=== PATIENT | female | born 1945 | race Caucasian/White ===

== ENCOUNTER 2016-03-14 21:32 | Inpatient (IN) ==
[2016-03-14 22:28] LABS: Basophils % 0.6 %; Eosinophils % 0.8 %; Hematocrit 47.1 % (35.3-44.9); Hemoglobin 15.2 g/dL (11.5-15.4); Immature Granulocytes % 0.3 % (0-4); Lymphocytes # 0.3 K/mcL (0.6-4.6); Lymphocytes % 7.3 %; Mean Corpuscular HGB Conc 32.3 g/dL (31.6-35.5); Mean Corpuscular Hemoglobin 29.2 pg (28.0-33.3); Mean Corpuscular Volume 90.4 fL (83.0-100.0); Mean Platelet Volume 10.4 fL (9.4-12.4); Monocytes # 0.3 K/mcL (0.0-1.3); Monocytes % 7.6 %; Platelet Count 210 K/mcL (140-400); Red Blood Count 5.21 M/mcL (3.82-4.97); Red Cell Distribution Width 14.5 % (11.5-14.5); Segmented Neutrophils % 83.4 %
[2016-03-14 22:32] LABS: Neutrophils # 2.9 K/mcL (1.6-8.9)
[2016-03-14 22:43] LABS: Calcium 9.9 mg/dL (8.6-10.8); Potassium 4.5 mEq/L (3.5-4.5)
[2016-03-14 22:50] LABS: Platelet Estimate Normal (Normal)
[2016-03-14] MEDS ORDERED: Naloxone 0.4 MG/ML INJ IVP PRN (23:48)
[2016-03-15] MEDS ORDERED: Acetaminophen 325 MG TABLET PO PRN (00:44)
[2016-03-15] MEDS ORDERED: 0.9 % Sodium Chloride 1,000 ML IVC SCH ×3 (00:45→01:48)
--- NOTE | 2016-03-15 01:04 | Internal Med History&Physical ---
<Marlyn Gonzalez M - Last Filed: 03/15/16 01:49> Date of Encounter: 03/15/16 Time of Encounter: 01:01 Assessment and Plan (1) Acute kidney injury Current visit: Yes Status: Acute Creatinine elevated to 1.4 from her baseline of 0.79. BUN at 31 and Hct 47.1. Likely due to poor oral intake and dehydration. Bolus of 500mL of 0.9NS Hydrate with IV fluids 0.9NS at 100mL/hr Hold home losartan Avoid NSAIDS Urinalysis with micro and culture Recheck BMP in the morning and consider retroperitoneal ultrasound if not improved. (2) Aspiration into airway Current visit: Yes Status: Acute Patient on honey thick liquid diet for previous dysphagia and aspiration issues , but was observed choking, gagging and coughing by SNF staff and they were concerned for aspiration again. She was observed vomiting 1/2 hour prior to arrival of EMS by staff as well. Her Oxygen saturation is lower, 88% on room air, comes up to 93-94% on 2L. CXR showed improved lung volumes from previous study and no acute process. NPO Speech consult for swallow study. IV fluids for hydration: 0.9NS at 100mL/hr Qualifiers: Encounter type: initial encounter Qualified Code(s): T17.908A - Unspecified foreign body in respiratory tract, part unspecified causing other injury, initial encounter (3) Acute respiratory failure Current visit: Yes Status: Acute Oxygen saturation low at 88% on room air, improved to 93% on 4L NC. duoneb treatments QID titrate O2 to maintain oxygen saturation > 92% Qualifiers: Respiratory failure complication: hypoxia Qualified Code(s): J96.01 - Acute respiratory failure with hypoxia (4) Oral thrush Current visit: Yes Status: Acute White patches seen on tongue on exam. Ordered nystatin solution to be swabbed on tongue and in mouth. Do not give patient to swallow due to aspiration concerns. (5) Dehydration Current visit: Yes Status: Acute appears dry on exam. DOT is likely due to poor oral intake and dehydration. BUN /Cr 31/1.4, Hct 47.1. IV fluid bolus 500mL of 0.9NS IV fluids for hydration 0.9NS at 100mL/hr (6) DVT prophylaxis Current visit: No Status: Acute anti-embolic stockings 5,000u SQ heparin BID Internal Medicine - H&P: HPI Chief complaint: dyspnea Admitted From: Emergency Dept Plans for Post Hospital Care: Transfer Snf Facility History of present illness: Ms. Martinez is a 70 year old female with history of Alzheimer's, dementia, hypertension, hyperlipidemia who was brought by squad from her residential facility for concern of aspiration after she was observed choking, gagging and coughing. She is alert and oriented 0 at her baseline. She does follow simple commands. Her oxygen saturation was 88% on room air. It came up to 93% on 2 L. She is afebrile and her white count is 3.5. Workup in the ED was significant for acute kidney injury with a creatinine of 1.4 up from her baseline of 0.79. Chest x-ray showed improved lung volumes from previous and no acute issues. Past Med Surg Social Fam HX - Past Medical History Medical history: CHF, dementia, hyperlipidemia, hypertension, other Psychiatric history: anxiety, bipolar, depression - Past Surgical History Surgical History: no surgical history - Social History Smoking Status: Former smoker Smokeless Tobacco Status: No Alcohol use: none Drug use: none Internal Medicine - H&P: Meds Amlodipine [Norvasc] 5 mg PO DAILY 03/01/16 [History] Aspirin [Lo-Dose Aspirin EC] 81 mg PO DAILY 03/01/16 [History] Atorvastatin [Lipitor] 40 mg PO HS 03/01/16 [History] Citalopram [CeleXA] 30 mg PO DAILY 03/01/16 [History] Cyanocobalamin (Vitamin B-12) [Vitamin B12] 2,500 mcg SL DAILY 03/01/16 [History ] Losartan [Cozaar] 50 mg PO DAILY 03/01/16 [History] Montelukast [Singulair] 10 mg PO DAILY 03/01/16 [History] Potassium Chloride [Klor-Con 10] 10 meq PO DAILY 03/01/16 [History] Aripiprazole [Abilify] 2 mg PO TID 03/03/16 [History] ClonazePAM [Klonopin] 0.25 - 0.5 mg PO BID PRN 03/03/16 [History] Donepezil [Aricept] 10 mg PO DAILY 03/03/16 [History] Ipratropium/Albuterol Neb [Duoneb] 3 ml IH Q6HR 03/03/16 [History] Levofloxacin [Levaquin] 500 mg PO DAILY #5 tablet 03/03/16 [Rx] Memantine HCl [Namenda Xr] 28 mg PO DAILY 03/03/16 [History] Allergies No Known Allergies Allergy (Unverified 09/29/15 14:24) ROS unobtainable: due to mental status All Systems PM: A 10-system review of systems was performed and is negative for pertinent findings except as documented above in the HPI. - Constitutional Vitals: Temp Pulse Resp BP Pulse Ox 98.6 F 93 20 137/87 93 L 03/14/16 21:34 03/14/16 21:34 03/14/16 21:34 03/14/16 21:34 03/14/16 21:47 General appearance: Present: A&O X 0 - Head Head exam: Present: atraumatic, normocephalic - Eye Eye exam: Present: conjuntiva pink, sclera anicteric Additional comments: right Iris and pupil clouded with cataract. Left pupil reactive to light. - ENT ENT exam: Present: mucous membranes dry Additional comments: diffuse white patches on tongue - Neck Neck exam general surgery: Present: supple, trachea midline. Absent: lymphadenopathy - Respiratory Respiratory exam: Present: CTAB. Absent: accessory muscle use, rales, rhonchi, wheezes - Cardiovascular Cardiovascular exam: Present: RRR, +S1, +S2. Absent: diastolic murmur, gallop, rubs, systolic murmur - GI/Abdominal GI/Abdominal exam: Present: normal bowel sounds, soft, no peritoneal signs. Absent: distended, tenderness - Extremities Exam Extremities exam: Present: warm, radial pulses palpable and symetrical. Absent : calf tenderness, cyanotic, pedal edema Additional comments: ecchymosis across right toes. - Neurological Exam Neurological exam: Present: alert. Absent: facial droop, speech deficit - Expanded Neurological Exam Neurological exam expanded: Present: memory loss-remote event Cranial Nerves: EOM's intact PM: Normal Coma Scale Eye Opening: Spontaneous Coma Scale Motor Response: Obeys Commands Coma Scale Verbal Response: Inappropriate Coma Scale Total: 13 - Skin Skin exam: Present: dry, intact Internal Med - H&P Results - Labs CBC & Chem 7: 03/14/16 22:14 03/14/16 22:14 Labs: Short CBC 03/14/16 Range/Units 22:14 WBC 3.5 L (4.3-11.1) K/mcL Hgb 15.2 (11.5-15.4) g/dL Hct 47.1 H (35.3-44.9) % Plt Count 210 (140-400) K/mcL Neutrophils # 2.9 (1.6-8.9) K/mcL BMP 03/14/16 22:14 Sodium 138 Potassium 4.5 Chloride 100 Carbon Dioxide 25 BUN 31 H Creatinine 1.40 H Glucose 150 H Calcium 9.9 Cardiac Enzymes 03/14/16 Range/Units 22:14 Troponin I 0.01 (0-0.03) ng/mL - Impressions ITS Impressions Chest X-Ray 03/14/16 21:45 IMPRESSION: Improved lung volumes. No new infiltrate. D/ / Linda Thornton MD / Linda Thornton MD Interpreting Provider: Linda Thornton MD <Germain Cordova - Last Filed: 03/15/16 02:49> Date of Encounter: 03/15/16 Internal Medicine - H&P: HPI History of present illness: Ms. Martinez is a 70 year old female All Systems PM: A 10-system review of systems was performed and is negative for pertinent findings except as documented above in the HPI. - Constitutional Vitals: Temp Pulse Resp BP Pulse Ox 98.6 F 93 20 117/73 93 L 03/14/16 21:34 03/14/16 21:34 03/15/16 01:56 03/15/16 01:56 03/14/16 21:47 Internal Med - H&P Results - Labs CBC & Chem 7: 03/14/16 22:14 03/14/16 22:14 - Attending Attestation I examined this patient and my medical decision-making was reviewed with the ASSESSMENT DIRECTOR/PA/Advanced Practice Nurse/Resident Physician. I agree with the documented findings, disposition and treatment plan as described except to the extent set forth below. 70 yo female with Alzheimer's dementia was brought to ER by squad after she threw up and was found to be choking and gagging. She was found to be hypoxic and was placed on oxygen. Exam reveals CTAB. RRR. Soft and non tender abdomen. Labs reviewed. CXR personally reviewed and does not reveal an acute infiltrate 1. DOT - Likely pre-renal due to dehydration complicated by ARB use. IV fluids. Monitor renal function. Hold ARB. Avoid nephrotoxic agents and hypotension. Admit to inpatient status. Expect the patient to stay at least 2 midnights. High risk due to risk of worsening respiratory failure from her aspiration pneumonitis. Check urine studies. 2. Aspiration pneumonitis - No evidence of infiltrate. Hold antibiotics for now. If patient's condition worsens or she develops an infiltrate, will start unasyn. 3. Acute hypoxic respiratory failure - Due to aspiration pneumonitis. PIEDAD Pennington
[2016-03-15] MEDS ORDERED: 0.9 % Sodium Chloride 500 ML IVC ONE (01:22)
[2016-03-15] MEDS: 0.9 % Sodium Chloride 1,000 ML IVC SCH (03:04)
--- NOTE | 2016-03-15 03:11 | Emergency Department Note ---
Disposition Clinical Impression: Acute kidney injury, Dehydration, Low O2 saturation Disposition: Admitted As Inpatient Condition: Serious Time of Disposition: 23:35 General Adult HPI - General Chief complaint: ED Shortness of Breath/Dyspnea Stated complaint: possible aspiration Source: patient, EMS Limitations: no limitations Nursing Notes Reviewed: Yes Vital Signs Reviewed: Yes - History of Present Illness HPI Narrative: Patient is a 70-year-old female [facility] to possible aspiration with emesis. Patient has dementia and Alzheimer's and is a poor historian. Patient does not respond to questions. EMS states that patient had an O2 sat of 88% on room air was placed on oxygen 4 L to bring patient up to 90%. Patient is oxygenation was continued here we got patient's O2 sat up to 94%. Discussion with [facility] states that patient with previous history of aspiration pneumonia and admission to [facility] was thought to have aspirated again. When patient was sat up she vomited brown mucous material. Discussion with on-site physician over the phone from the patient's delivery to [place] emergency Department for evaluation. Pain Scale: 0 - Related Data Home Medications Medication Instructions Recorded Confirmed Amlodipine [Norvasc] 5 mg PO DAILY 03/01/16 03/03/16 Aspirin [Lo-Dose Aspirin EC] 81 mg PO DAILY 03/01/16 03/03/16 Atorvastatin [Lipitor] 40 mg PO HS 03/01/16 03/03/16 Citalopram [CeleXA] 30 mg PO DAILY 03/01/16 03/03/16 Cyanocobalamin (Vitamin B-12) 2,500 mcg SL DAILY 03/01/16 03/03/16 [Vitamin B12] Losartan [Cozaar] 50 mg PO DAILY 03/01/16 03/03/16 Montelukast [Singulair] 10 mg PO DAILY 03/01/16 03/03/16 Potassium Chloride [Klor-Con 10] 10 meq PO DAILY 03/01/16 03/03/16 Aripiprazole [Abilify] 2 mg PO TID 03/03/16 03/03/16 ClonazePAM [Klonopin] 0.25 - 0.5 mg PO BID PRN 03/03/16 03/03/16 Donepezil [Aricept] 10 mg PO DAILY 03/03/16 03/03/16 Ipratropium/Albuterol Neb [Duoneb] 3 ml IH Q6HR 03/03/16 03/03/16 Memantine HCl [Namenda Xr] 28 mg PO DAILY 03/03/16 03/03/16 Previous Rx's Medication Instructions Recorded Levofloxacin [Levaquin] 500 mg PO DAILY #5 tablet 03/03/16 Allergies Allergy/AdvReac Type Severity Reaction Status Date / Time No Known Allergies Allergy Unverified 09/29/15 14:24 Limitations: ROS unobtainable due to patients medical condition Past Medical History - Past Medical History Source: old records reviewed, nursing notes reviewed Medical history: Reports: CHF, dementia, hyperlipidemia, hypertension, other Surgical history: Reports: no surgical history Psychiatric history: Reports: anxiety, bipolar, depression - Social History Smoking Status: Former smoker Smokeless Tobacco Status: No Alcohol use: Reports: none Drug use: Reports: none Physical Exam Vital Signs Temperature 98.6 F 03/14/16 21:34 Pulse Rate 93 03/14/16 21:34 Respiratory Rate 20 03/14/16 21:34 Blood Pressure 137/87 03/14/16 21:34 O2 Sat by Pulse Oximetry 91 L 03/14/16 21:34 Temperature 98.0 F 03/15/16 03:36 Pulse Rate 82 03/15/16 03:36 Respiratory Rate 16 03/15/16 03:36 Blood Pressure 123/71 03/15/16 03:36 O2 Sat by Pulse Oximetry 95 03/15/16 03:36 Oxygen Delivery Oxygen Delivery Nasal Cannula -General Appearance: Patient is a 70-year-old female who does not respond to line of questioning secondary to dementia and Alzheimer's. Neurological exam unable to obtain secondary to patient's condition. Patient does squeeze my hands when my fingers are placed in her palms - Head Head exam: atraumatic, normocephalic, normal inspection - Eye Eye exam: Present: normal appearance, PERRL, EOMI, negative for scleral icterus negative for conjunctival pallor - ENT ENT exam: normal exam, normal oropharynx, mucous membranes moist - Neck Neck exam: Present: normal inspection, full ROM, trachea midline, negative JVD - Chest Chest inspection: Present: Patient has bilateral equal rise and fall of chest wall. Non-tender to palpation. - Respiratory Respiratory exam: Patient is not followed instructions to take a deep breath. Lung sounds barely audible secondary to patient not taking deep breaths. Partial rhonchus sounds auscultated no wheezing appreciated Cardiovascular Cardiovascular exam: Present: regular rate, normal rhythm, normal heart sounds, without murmurs rubs or gallops. - Abdominal Exam Abdominal exam: Present: soft, nondistended, Non-Tender light and deep palpation in all quadrants. Bowel sounds normoactive throughout all 4 quadrants. Negative for hyper or hyperresonance. - Extremities Exam Extremities exam: Present: normal inspection, full ROM - Back Exam Back exam: Present: normal inspection, full ROM. Absent: tenderness, CVA tenderness (R), CVA tenderness (L) - Psychiatric Psychiatric exam: Present: normal affect, normal mood - Skin Skin exam: Present: warm, dry, intact, normal color - General Limitations: no limitations General appearance: alert, in no apparent distress Course Course Narrative: Patient seen and examined, and lace on O2 bring O2 sats of 94%. long term contacted - Consultations Consultation #1: Dr. Cordova accepted for admission Time: 23:35 Vital Signs Temperature 98.6 F 03/14/16 21:34 Pulse Rate 93 03/14/16 21:34 Respiratory Rate 20 03/14/16 21:34 Blood Pressure 137/87 03/14/16 21:34 O2 Sat by Pulse Oximetry 91 L 03/14/16 21:34 Temperature 98.0 F 03/15/16 03:36 Pulse Rate 82 03/15/16 03:36 Respiratory Rate 16 03/15/16 03:36 Blood Pressure 123/71 03/15/16 03:36 O2 Sat by Pulse Oximetry 95 03/15/16 03:36 Oxygen Delivery Oxygen Delivery Nasal Cannula Medical Decision Making - [facility] Narrative Medical decision making narrative: Patient's history and exam concerning for possible aspiration pneumonia. Patient initially had an O2 sats of 88% on room air. Patient placed on O2. 4 L was able to bring patient O2 sats 94%. During patient's stay patient's O2 sats reached 96%. Patient is demented and has Alzheimer's and does not respond to questioning. Patient appears to be resting comfortably. Patient has a history of hyperlipidemia dysphagia, bipolar, dementia, Alzheimer's. Patient has previous aspiration event treated for aspiration pneumonia 3 weeks ago. This is thought to have aspirated again. Chest x-ray today shows no recurrence of aspiration. Patient's CBC shows a WBC of 3.5, hemoglobin of 15.2, hematocrit of 47.1. Patient's BMP shows a BUN of 31 dehydration. creatinine of 1.4 for DOT previous creatinine level 0.79. Patient also has a reduction a GFR of 37 with previous greater than 60 Troponin was negative at 0.01. Patient was started on IV hydration for dehydration. Patient admitted to the hospital for further workup and evaluation. Dr. Cordova was the accepting physician. - Medical Records Medical records reviewed: Yes I reviewed the patient's medical records. - Lab Data Lab results reviewed: Yes I reviewed the patient's lab results. Lab results narrative: Short CBC 03/14/16 Range/Units 22:14 WBC 3.5 L (4.3-11.1) K/mcL Hgb 15.2 (11.5-15.4) g/dL Hct 47.1 H (35.3-44.9) % Plt Count 210 (140-400) K/mcL Neutrophils # 2.9 (1.6-8.9) K/mcL BMP 03/14/16 Range/Units 22:14 Sodium 138 (136-145) mEq/L Potassium 4.5 (3.5-4.5) mEq/L Chloride 100 (98-109) mEq/L Carbon Dioxide 25 (19-29) mEq/L BUN 31 H (7-20) mg/dL Creatinine 1.40 H (0.57-1.11) mg/dL Glucose 150 H (70-99) mg/dL Calcium 9.9 (8.6-10.8) mg/dL Cardiac Enzymes 03/14/16 Range/Units 22:14 Troponin I 0.01 (0-0.03) ng/mL Result diagrams: 03/14/16 22:14 03/15/16 03:38 Lab Results 03/14/16 03/14/16 03/14/16 Range/Units 22:14 22:14 22:14 WBC 3.5 L (4.3-11.1) K/mcL RBC 5.21 H (3.82-4.97) M/mcL Hgb 15.2 (11.5-15.4) g/dL Hct 47.1 H (35.3-44.9) % MCV 90.4 (83.0-100.0) fL MCH 29.2 (28.0-33.3) pg MCHC 32.3 (31.6-35.5) g/dL RDW 14.5 (11.5-14.5) % Plt Count 210 (140-400) K/mcL MPV 10.4 (9.4-12.4) fL Immature Gran % 0.3 (0-4) % Seg Neutrophils % 83.4 % Lymphocytes % 7.3 % Monocytes % 7.6 % Eosinophils % 0.8 % Basophils % 0.6 % Neutrophils # 2.9 (1.6-8.9) K/mcL Lymphocytes # 0.3 L (0.6-4.6) K/mcL Monocytes # 0.3 (0.0-1.3) K/mcL Eosinophils # 0.0 (0.0-0.6) K/mcL Basophils # 0.0 (0.0-0.2) K/mcL Platelet Estimate Normal (Normal) Sodium 138 (136-145) mEq/L Potassium 4.5 (3.5-4.5) mEq/L Chloride 100 (98-109) mEq/L Carbon Dioxide 25 (19-29) mEq/L BUN 31 H (7-20) mg/dL Creatinine 1.40 H (0.57-1.11) mg/dL Est GFR ( Amer) 45 L (> 60) Est GFR (Non-Af Amer) 37 L (> 60) BUN/Creatinine Ratio 22 (6-26) Glucose 150 H (70-99) mg/dL Calculated Osmolality 295 (280-300) Calcium 9.9 (8.6-10.8) mg/dL Troponin I 0.01 (0-0.03) ng/mL - Radiology Data Radiology results reviewed: Yes I reviewed the patient's radiology results. Chest X-Ray 03/14/16 21:45 IMPRESSION: Improved lung volumes. No new infiltrate. D/ / Linda Thornton MD / Linda Thornton MD Interpreting Provider: Linda Thornton MD Attestation Statement - Attestation Attestation: For this encounter, I have reviewed the resident, [employer] TEAM MEMBER, or PA documentation, treatment plan, and medical decision making; and I have had face to face time with this patient. History source: Patient is unable to provide information for this note. Info was gathered from the patient, hospital staff, the patient's chart. History limitations: Patient condition Medications: As per nurses note 70-year-old female [facility] from [facility] with concerns of possible aspiration. Patient was apparently choking on food and then vomited prior to arrival. Patient has a history of aspiration which is cause pneumonia in the past. Patient is unable to give a history regarding her symptoms. states the patient does not wear oxygen at home however if removed from oxygen she desaturates to 88% in the emergency department. Lungs clear to auscultation bilaterally. Patient has an elevation of her creatinine to 1.4 which is significantly higher than her previous creatinine level. Patient will be admitted to the hospital for further care and evaluation of her acute kidney injury as well as her possible aspiration
[2016-03-15] MEDS: Ipratropium/Albuterol Neb 3 ML IH SCH ×4 (03:58→22:17)
[2016-03-15 05:53] LABS: Clarity,Urine Clear (Clear); Color,Urine Dark Yellow (Yellow); Glucose,Urine (UA) Normal (Normal)
[2016-03-15 05:54] LABS: Bilirubin,Urine Small (Negative); Blood,Urine Negative (Negative); Ketones,Urine Trace mg/dL (Negative); Leukocyte Esterase,Urine Trace (Negative); Nitrite,Urine Negative (Negative); PH,Urine 5.5 pH Units (5.0-8.0); Protein,Urine Trace mg/dL (Neg-Trace); Specific Gravity,Urine 1.027 (1.010-1.025); Urobilinogen,Urine Normal (Normal)
[2016-03-15 05:55] LABS: Basophils % 0.3 %; Calcium 9.2 mg/dL (8.6-10.8); Hematocrit 39.8 % (35.3-44.9); Immature Granulocytes % 0.3 % (0-4); Lymphocytes # 0.6 K/mcL (0.6-4.6); Lymphocytes % 9.1 %; Mean Corpuscular HGB Conc 32.4 g/dL (31.6-35.5); Mean Corpuscular Hemoglobin 28.9 pg (28.0-33.3); Mean Corpuscular Volume 89.2 fL (83.0-100.0); Mean Platelet Volume 10.8 fL (9.4-12.4); Monocytes # 0.6 K/mcL (0.0-1.3); Monocytes % 9.3 %; Neutrophils # 5.4 K/mcL (1.6-8.9); Platelet Count 226 K/mcL (140-400); Potassium 4.2 mEq/L (3.5-4.5); Red Blood Count 4.46 M/mcL (3.82-4.97); Red Cell Distribution Width 14.6 % (11.5-14.5)
[2016-03-15 06:00] LABS: Mucus,Urine Few (Few); Squamous Epithelial Cell,Urine Few per lpf (None-Few); WBC,Urine 0-3 per hpf (0-3)
[2016-03-15] MEDS: *HR* Heparin 5,000 UNIT/ML VIAL SQ SCH ×2 (06:21→18:26)
[2016-03-15 06:40] LABS: Creatinine,Urine 207 mg/dL; Microalbum/Creatinine Ratio,Ur 5 (0-30); Microalbumin,Urine 11 mg/L
[2016-03-15 06:42] LABS: Hemoglobin 12.9 g/dL (11.5-15.4)
[2016-03-15 06:46] LABS: Platelet Estimate Normal (Normal)
--- NOTE | 2016-03-15 09:44 | Event Note ---
<Adryan Deng - Last Filed: 03/15/16 15:12> Date of Encounter: 03/15/16 Time of Encounter: 09:43 Pt seen and examined. She is A/O x0, which is apparently her baseline but does respond to questions appropriately. States she is not hurting anywhere and has no issues with breathing. On exam, she is in no acute distress but somewhat difficult to arouse as she was asleep. Lungs sounds were clear and her heart was RRR without murmurs. No abdominal discomfort and bowel sounds were normal. Patient does come from [facility] facility, but it was likely that she was dehydrated which led to her DOT. She is to remain in the hospital at least another day to monitor for any other episodes of vomiting and possible aspiration. Anticipate discharge back to SNF once she is able to tolerate her diet here and has been adequately hydrated. DOT - Cr improving, will continue on maintenance fluids and monitor Cr and electrolytes, avoid nephrotoxic agents Aspiration into airway - Does not appear to be causing a pneumonia as indicated by negative CXR and unremarkable labs/vitals Speech consulted, recommended honey thickened liquids <Faisal Montemayor - Last Filed: 03/15/16 17:01> Date of Encounter: 03/15/16 Pt currently admitted for DOT and possible asp pneumonia. She is alert and conversant but confused. Her creatinine is improving. Lungs clear currently. Anticipate return to [facility]CF tomorrow.
--- NOTE | 2016-03-15 10:38 | Electrocardiograph Report ---
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
[2016-03-15] MEDS: Cyanocobalamin (B-12) 1,000 MCG TABLET PO SCH (11:11)
[2016-03-15] MEDS: ARIPiprazole 2 MG TABLET PO SCH ×3 (11:12→22:14)
[2016-03-15] MEDS: Aspirin Enteric Coated 81 MG Tablet PO SCH (11:12)
[2016-03-15] MEDS: amLODIPine 5 MG TABLET PO SCH (11:12)
[2016-03-15] MEDS: Nystatin SUSP 5 ML UD.LIQ PO SCH ×4 (11:14→22:14)
[2016-03-16] MEDS: Ipratropium/Albuterol Neb 3 ML IH SCH ×4 (04:11→22:30)
[2016-03-16] MEDS: 0.9 % Sodium Chloride 1,000 ML IVC SCH ×3 (04:17→21:28)
[2016-03-16 05:03] LABS: Basophils % 0.4 %; Eosinophils # 0.2 K/mcL (0.0-0.6); Eosinophils % 4.2 %; Hematocrit 37.5 % (35.3-44.9); Hemoglobin 11.9 g/dL (11.5-15.4); Lymphocytes # 1.6 K/mcL (0.6-4.6); Lymphocytes % 31.2 %; Mean Corpuscular HGB Conc 31.7 g/dL (31.6-35.5); Mean Corpuscular Hemoglobin 29.1 pg (28.0-33.3); Mean Corpuscular Volume 91.7 fL (83.0-100.0); Mean Platelet Volume 9.7 fL (9.4-12.4); Monocytes # 0.7 K/mcL (0.0-1.3); Monocytes % 14.1 %; Neutrophils # 2.5 K/mcL (1.6-8.9); Platelet Count 194 K/mcL (140-400); Red Blood Count 4.09 M/mcL (3.82-4.97); Red Cell Distribution Width 14.5 % (11.5-14.5); Segmented Neutrophils % 49.1 %
[2016-03-16 05:30] LABS: BUN/Creatinine Ratio 33 (6-26); Blood Urea Nitrogen 27 mg/dL (7-20); Calcium 8.9 mg/dL (8.6-10.8); Carbon Dioxide 25 mEq/L (19-29); Chloride 107 mEq/L (98-109); Glucose 96 mg/dL (70-99); Osmolality,Calculated 293 (280-300); Potassium 3.9 mEq/L (3.5-4.5); Sodium 139 mEq/L (136-145); eGFR For African Americans > 60 (> 60); eGFR For Non-African Americans > 60 (> 60)
[2016-03-16 05:40] LABS: Platelet Estimate Normal (Normal)
[2016-03-16] MEDS: *HR* Heparin 5,000 UNIT/ML VIAL SQ SCH ×2 (06:22→18:28)
[2016-03-16] MEDS ORDERED: Levofloxacin 750 MG/150 ML 750 MG/150 ML BAG IVPB SCH (09:00)
[2016-03-16] MEDS: ARIPiprazole 2 MG TABLET PO SCH ×3 (10:19→21:21)
[2016-03-16] MEDS: Nystatin SUSP 5 ML UD.LIQ PO SCH ×4 (10:19→21:21)
[2016-03-16] MEDS: Cyanocobalamin (B-12) 1,000 MCG TABLET PO SCH (10:19)
[2016-03-16] MEDS: amLODIPine 5 MG TABLET PO SCH (10:20)
[2016-03-16] MEDS: Aspirin Enteric Coated 81 MG Tablet PO SCH (10:20)
--- NOTE | 2016-03-16 15:36 | Internal Med Progress Note ---
Date of Encounter: 03/16/16 Time of Encounter: 11:00 - Assessment and plan (1) UTI (urinary tract infection) Current Visit: Yes Status: Acute Assessment and plan: Preliminary urine culture consistent with gram-negative rods 2. Levofloxacin initiated, awaiting cultures. (2) Acute respiratory failure Current Visit: Yes Status: Acute Assessment and plan: Slowly weaning the patient to room air. Unclear causation at this time. Chest x-ray unremarkable. Speech therapy remains on board for possible aspiration however no clinical indication of aspiration. ITS Impressions Chest X-Ray 03/14/16 21:45 IMPRESSION: Improved lung volumes. No new infiltrate. D/ / Linda Thornton MD / Linda Thornton MD Interpreting Provider: Linda Thornton MD Qualifiers: Respiratory failure complication: hypoxia Qualified Code(s): J96.01 - Acute respiratory failure with hypoxia (3) Acute kidney injury Current Visit: Yes Status: Resolved (4) Aspiration into airway Current Visit: Yes Status: Suspected Assessment and plan: Speech therapy on board. Continue daily therapy. Continue honey thickened Qualifiers: Encounter type: initial encounter Qualified Code(s): T17.908A - Unspecified foreign body in respiratory tract, part unspecified causing other injury, initial encounter (5) Dehydration Current Visit: Yes Status: Resolved Assessment and plan: Euvolemic on examination. Eating well. Acute kidney injury resolved. (6) Oral thrush Current Visit: Yes Status: Acute Assessment and plan: Continue nystatin. (7) DVT prophylaxis Current Visit: No Status: Acute Assessment and plan: Subcutaneous heparin (8) Hypertension Current Visit: No Status: Chronic Assessment and plan: Controlled. We will continue to trend and adjust medications as indicated. Qualifiers: Hypertension type: essential hypertension Qualified Code(s): I10 - Essential (primary) hypertension (9) Dementia Current Visit: Yes Status: Chronic Assessment and plan: Alert and pleasantly confused which appears consistent with her baseline - Subjective Interval history: Patient seen and examined. On examination, patient sitting upright in bed. Patient alert and interactive and pleasantly confused. She currently denies pain or shortness of breath. She states she thinks she ate all of her breakfast. - Constitutional Vitals: Temp Pulse Resp BP Pulse Ox 98 F 84 14 137/79 90 L 03/16/16 11:47 03/16/16 11:47 03/16/16 11:47 03/16/16 11:47 03/16/16 11:47 General appearance: Present: A&O X 0, pleasant, no acute distress. Absent: answers questions appropriately - Head Head exam: Present: atraumatic, normocephalic - Eye Eye exam: Present: PERRL, conjuntiva pink, sclera anicteric Pupils: Present: PERRL - Neck Neck exam general surgery: Present: supple, trachea midline. Absent: lymphadenopathy - Respiratory Respiratory exam: Present: decreased breath sounds. Absent: accessory muscle use, rales, respiratory distress, rhonchi, wheezes - Cardiovascular Cardiovascular exam: Present: RRR, +S1, +S2. Absent: diastolic murmur, gallop, rubs, systolic murmur - GI/Abdominal GI/Abdominal exam: Present: normal bowel sounds, soft, no peritoneal signs. Absent: distended, tenderness - Extremities Exam Extremities exam: Present: warm, radial pulses palpable and symetrical. Absent : calf tenderness, cyanotic, pedal edema - Neurological Exam Neurological exam: Present: alert, CN II-XII intact, no focal deficits. Absent : pronater drift, facial droop, speech deficit - Skin Skin exam: Present: dry, intact, pallor, warm Internal Medicine: Result - Labs CBC & Chem 7: 03/16/16 04:42 03/16/16 04:42 Labs: Short CBC 03/16/16 Range/Units 04:42 WBC 5.0 (4.3-11.1) K/mcL Hgb 11.9 (11.5-15.4) g/dL Hct 37.5 (35.3-44.9) % Plt Count 194 (140-400) K/mcL Neutrophils # 2.5 (1.6-8.9) K/mcL BMP 03/16/16 04:42 Sodium 139 Potassium 3.9 Chloride 107 Carbon Dioxide 25 BUN 27 H Creatinine 0.81 Glucose 96 Calcium 8.9 - VTE Documentation of Mechanical Device: Graduated compression elastic hosiery Consult Discharge Plan - Plan Referrals: Rafael Martin MD [Partnered Physician] - 03/23/16 2:00 pm
[2016-03-17] MEDS: Ipratropium/Albuterol Neb 3 ML IH SCH ×3 (03:54→16:18)
[2016-03-17] MEDS: *HR* Heparin 5,000 UNIT/ML VIAL SQ SCH (06:10)
[2016-03-17] MEDS ORDERED: Sulfamethoxazole/Trimeth DS 1 EACH TABLET PO SCH (09:00)
[2016-03-17] MEDS: amLODIPine 5 MG TABLET PO SCH (10:40)
[2016-03-17] MEDS: ARIPiprazole 2 MG TABLET PO SCH (10:40)
[2016-03-17] MEDS: Cyanocobalamin (B-12) 1,000 MCG TABLET PO SCH (10:40)
[2016-03-17] MEDS: Nystatin SUSP 5 ML UD.LIQ PO SCH (10:40)
[2016-03-17] MEDS: Aspirin Enteric Coated 81 MG Tablet PO SCH (10:40)
--- NOTE | 2016-03-17 14:33 | Discharge Summary ---
Date of Encounter: 03/17/16 Time of Encounter: 11:00 - Discharge Diagnosis (1) UTI (urinary tract infection) Priority: Primary Status: Acute Comments: Urine culture revealing Escherichia coli resistant to ampicillin, ampicillin/ sulbactam, and ciprofloxacin and levofloxacin. Levofloxacin discontinued and Bactrim initiated. (2) Acute respiratory failure Priority: Primary Status: Resolved Comments: Patient intermittently required supplemental oxygenation during this admission however she was on room air at time of discharge. Unclear causation at this time. Chest x-ray unremarkable. Speech therapy was on board for possible aspiration however no clinical indication of aspiration pneumonitis. Recommend continued monitoring and follow-up outpatient ITS Impressions Chest X-Ray 03/14/16 21:45 IMPRESSION: Improved lung volumes. No new infiltrate. D/ / Linda Thornton MD / Linda Thornton MD Interpreting Provider: Linda Thornton MD Qualifiers: Respiratory failure complication: hypoxia Qualified Code(s): J96.01 - Acute respiratory failure with hypoxia (3) Acute kidney injury Priority: Primary Status: Resolved (4) Aspiration into airway Priority: Primary Status: Ruled-out Qualifiers: Encounter type: initial encounter Qualified Code(s): T17.908A - Unspecified foreign body in respiratory tract, part unspecified causing other injury, initial encounter (5) Dehydration Priority: Primary Status: Resolved Comments: Euvolemic on examination. Eating well. Acute kidney injury resolved. (6) Oral thrush Priority: Primary Status: Acute Comments: Continue nystatin (7) DVT prophylaxis Priority: Primary Status: Acute Comments: Subcutaneous heparin while admitted (8) Hypertension Priority: Secondary Status: Chronic Comments: Controlled. Recommend continued follow up outpatient. Qualifiers: Hypertension type: essential hypertension Qualified Code(s): I10 - Essential (primary) hypertension (9) Dementia Priority: Secondary Status: Chronic Comments: Alert and pleasantly confused throughout this admission which appears consistent with her baseline. Sending back to [facility], she is a bed hold there - Discharge Medications Prescriptions: ClonazePAM [Klonopin] 0.25 - 0.5 mg PO BID PRN #10 tablet PRN Reason: Anxiety Nystatin [Nystatin Suspension] 5 ml PO QID #120 ml Sulfamethoxazole/Trimeth DS [Bactrim Ds] 1 each PO BID #10 tablet Home Medications: Amlodipine [Norvasc] 5 mg PO DAILY 03/01/16 [History] Aspirin [Lo-Dose Aspirin EC] 81 mg PO DAILY 03/01/16 [History] Atorvastatin [Lipitor] 40 mg PO HS 03/01/16 [History] Citalopram [CeleXA] 30 mg PO DAILY 03/01/16 [History] Cyanocobalamin (Vitamin B-12) [Vitamin B12] 2,500 mcg SL DAILY 03/01/16 [History ] Losartan [Cozaar] 50 mg PO DAILY 03/01/16 [History] Montelukast [Singulair] 10 mg PO DAILY 03/01/16 [History] Potassium Chloride [Klor-Con 10] 10 meq PO DAILY 03/01/16 [History] Aripiprazole [Abilify] 2 mg PO TID 03/03/16 [History] Donepezil [Aricept] 10 mg PO DAILY 03/03/16 [History] Ipratropium/Albuterol Neb [Duoneb] 3 ml IH Q6HR 03/03/16 [History] Memantine HCl [Namenda Xr] 28 mg PO DAILY 03/03/16 [History] ClonazePAM [Klonopin] 0.25 - 0.5 mg PO BID PRN #10 tablet 03/17/16 [Rx] Nystatin [Nystatin Suspension] 5 ml PO QID #120 ml 03/17/16 [Rx] Sulfamethoxazole/Trimeth DS [Bactrim Ds] 1 each PO BID #10 tablet 03/17/16 [Rx] Allergies/Adverse Reactions: Allergies No Known Allergies Allergy (Verified 03/15/16 13:36) Date of admission: 03/15/16 01:33 Primary care physician: PCP NO Consults: 03/15/16 00:46 Consult to Emb[employer]er Apprentice [CONS] Routine Reason for SW Consult: alzeimer's dementia, 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 going back to facility on discharge 03/15/16 00:47 Consult to Speech Therapy [CONS] Routine Comment: Evaluate, develop and implement POC Reason for Consult: came with concern for aspiration. on honey thick diet at her SNF. Please evaluate swallow. Call Completed: No Discharging clinician: Isa Patino Anticipated date of discharge: 03/17/16 (sending back to [facility]- bedhold) - Patient Status Disposition: Transfer SNF Condition: Fair Functional capacity at discharge: independent ambulation Overall status at discharge: patient is back to baseline - Discharge Instructions Follow Up With: Rafael Martin MD [Partnered Physician] - 03/23/16 2:00 pm Forms: ED Satisfaction Letter Additional Instructions: Follow-up with primary care provider as scheduled - Diet and Activity Activity: increase activity as tolerated Diet: other (honey thickened with mechanically altered textures) Hospital course: Ms. Martinez is a 70 year old female with past medical history of advanced dementia , hypertension, hyperlipidemia, heart failure. Patient presented [facility] her [facility] for concern of possible aspiration. She was observed choking, gagging, and coughing at the correction. Patient presented alert and pleasantly confused consistent with her baseline. Patient's initial oxygen saturation was 88% on room air and she was started on supplemental oxygenation. Workup in the emergency department revealing acute kidney injury. Chest x-ray unremarkable. Patient was afebrile. No leukocytosis. Patient was admitted to the hospitalist service for further evaluation and management. Urinalysis consistent with urinary tract infection the patient was started on levofloxacin. Urine culture revealing Escherichia coli with resistance is to fluoroquinolones so the patient was changed to Bactrim. She was admitted and observed over the course of 3 days and intermittently required supplemental oxygenation but did not require it consistently. She was tolerating room air at time of discharge. Her acute kidney injury resolved. She was seen and evaluated by speech therapy and initially tolerated honey thickened diet and on day of discharge she had honey thickened liquids with mechanically altered textures and tolerated this diet well without signs of aspiration. No findings to suggest aspiration pneumonitis. Patient was discharged back to [facility] in stable condition. ITS Impressions Chest X-Ray 03/14/16 21:45 IMPRESSION: Improved lung volumes. No new infiltrate. D/ / Linda Thornton MD / Linda Thornton MD Interpreting Provider: Linda Thornton MD - Time Spent with Patient Total time spent providing and/or coordinating discharge services: - Constitutional Vitals: Temp Pulse Resp BP Pulse Ox 98.6 F 92 18 97/67 92 L 03/17/16 11:38 03/17/16 11:38 03/17/16 11:38 03/17/16 11:38 03/17/16 11:38 General appearance: Present: A&O X 0, pleasant, no acute distress. Absent: answers questions appropriately - Head Head exam: Present: atraumatic, normocephalic - Eye Eye exam: Present: PERRL, conjuntiva pink, sclera anicteric Pupils: Present: PERRL - Neck Neck exam general surgery: Present: supple, trachea midline. Absent: lymphadenopathy - Respiratory Respiratory exam: Present: CTAB. Absent: accessory muscle use, rales, respiratory distress, rhonchi, wheezes - Cardiovascular Cardiovascular exam: Present: RRR, +S1, +S2. Absent: diastolic murmur, gallop, rubs, systolic murmur - GI/Abdominal GI/Abdominal exam: Present: normal bowel sounds, soft, no peritoneal signs. Absent: distended, tenderness - Extremities Exam Extremities exam: Present: warm, radial pulses palpable and symetrical. Absent : calf tenderness, cyanotic, pedal edema - Neurological Exam Neurological exam: Present: alert, CN II-XII intact, no focal deficits. Absent : pronater drift, facial droop, speech deficit - Skin Skin exam: Present: dry, intact, normal color, warm - VTE Documentation of Mechanical Device: Graduated compression elastic hosiery
--- NOTE | 2016-03-17 14:53 | Physician Discharge Referral ---
ExtendedCare Referral Info Transfer To: [facility] Provider in Charge: Tushar Patino CNP Provider in Charge after Transfer: PCP Institutional Level of Care: Skilled - Diagnosis (1) UTI (urinary tract infection) Priority: Primary Status: Acute (2) Acute respiratory failure Priority: Primary Status: Resolved (3) Acute kidney injury Priority: Primary Status: Resolved (4) Aspiration into airway Priority: Primary Status: Ruled-out (5) Dehydration Priority: Primary Status: Resolved (6) Oral thrush Priority: Primary Status: Acute (7) DVT prophylaxis Priority: Primary Status: Acute (8) Hypertension Priority: Secondary Status: Chronic (9) Dementia Priority: Secondary Status: Chronic Prognosis: Fair Aware of Diagnosis: Patient Aware of Prognosis: Patient - Transfer Medications Prescriptions: ClonazePAM [Klonopin] 0.25 - 0.5 mg PO BID PRN #10 tablet PRN Reason: Anxiety Nystatin [Nystatin Suspension] 5 ml PO QID #120 ml Sulfamethoxazole/Trimeth DS [Bactrim Ds] 1 each PO BID #10 tablet Home Medications: Amlodipine [Norvasc] 5 mg PO DAILY 03/01/16 [History] Aspirin [Lo-Dose Aspirin EC] 81 mg PO DAILY 03/01/16 [History] Atorvastatin [Lipitor] 40 mg PO HS 03/01/16 [History] Citalopram [CeleXA] 30 mg PO DAILY 03/01/16 [History] Cyanocobalamin (Vitamin B-12) [Vitamin B12] 2,500 mcg SL DAILY 03/01/16 [History ] Losartan [Cozaar] 50 mg PO DAILY 03/01/16 [History] Montelukast [Singulair] 10 mg PO DAILY 03/01/16 [History] Potassium Chloride [Klor-Con 10] 10 meq PO DAILY 03/01/16 [History] Aripiprazole [Abilify] 2 mg PO TID 03/03/16 [History] Donepezil [Aricept] 10 mg PO DAILY 03/03/16 [History] Ipratropium/Albuterol Neb [Duoneb] 3 ml IH Q6HR 03/03/16 [History] Memantine HCl [Namenda Xr] 28 mg PO DAILY 03/03/16 [History] ClonazePAM [Klonopin] 0.25 - 0.5 mg PO BID PRN #10 tablet 03/17/16 [Rx] Nystatin [Nystatin Suspension] 5 ml PO QID #120 ml 03/17/16 [Rx] Sulfamethoxazole/Trimeth DS [Bactrim Ds] 1 each PO BID #10 tablet 03/17/16 [Rx] Allergies/Adverse Reactions: Allergies No Known Allergies Allergy (Verified 03/15/16 13:36) - Respiratory Orders Oxygen / L per min (2 PRN) Smoking Cessation: Smoking cessation has been advised. For more information, call the [place] [employer] Quit Line at 1-038-NSJB-NOW. - Lab Orders Lab Orders: Other (include drug levels w/frequency) (repeat CXR in 2 days if continued need for oxygen) - Ancillary Orders May use pressure relief devices daily prn, May go on SID w/family/respon republican w /meds at nurse discretion PRN, May have alcoholic beverages, May consult with Dentist, Product Support Sales Representative, Carry Out Clerk And Shelf Stocker PRN - Advance Directives Living Will: No Power of Bologna Maker: No Code Status: DNR-Arrest - Mobility Orders Ambulate - Rehabiliation Orders Rehab Potential: Fair Rehab Orders: ROM Exercises, Evaluation for Physical Therapy, Evaluation for Occupational Therapy, Evaluation for Speech Therapy - Treatments Skin tear care topically daily PRN per policy, May check for fecal impaction rectally daily PRN, Fleet enema rectally every other day PRN cleansing purposes - Diet Orders Mechanical Soft (with honey thick liqs) CERTIFICATION: I certify that the transfer of the above named patient to an Extended Care Facility is necessary for the continuing treatment of the diagnosis listed. The above information is true and accurate reflection of patient's current condition. Confidential - Redisclosure prohibited without a patient's written consent.
[2016-03-17 15:44] VITALS: BP 121/73
== END 2016-03-17 17:21 | DRG 189 ==
LOC: EMEROO 21:32 → 3BNU 03-15 01:33 → SUATTDRO 03-15 01:33 → 3BNU 03-15 02:17
PROVIDERS: ADMIT Internal Medicine Sleep Medicine; ATTEND Internal Medicine